=== PATIENT | male | born 1970 | race Caucasian/White ===

== ENCOUNTER 2022-05-12 20:04 | Emergency (ER) | payer OTHER, MEDICAID, SELFPAY ==
[2022-05-12 20:17] VITALS: BP 172/93; PULSE 102; RESP 16; TEMP 36.2; O2SAT 98; BMI 35.4
--- NOTE | 2022-05-12 20:27 | ED.NAVMDI ---
HPI - Nausea/Vomiting/Diarrhea General Chief complaint: Nausea/Vomiting/Diarrhea Stated complaint: Reaction to new insulin medication Time Seen by Provider: 05/12/22 20:26 History of Present Illness HPI Narrative: 51-year-old male smoker with history of diabetes presents with a chief complaint of 24 hours of significant vomiting and now weakness. He was just started a new diabetic medication yesterday and symptoms started soon thereafter. He was sent here by his primary care provider for evaluation. He denies any fever chills nor dietary change. He has no chest pain or shortness of breath and denies abdominal pain. He is otherwise well and free of complaint Related Data Home Medications Medication Instructions Recorded Confirmed glipizide 2.5 mg tablet, extended 2.5 mg PO BIDAC ##0 12/27/16 release 24 hr (Glucotrol XL) Previous Rx's Medication Instructions Recorded azithromycin 250 mg tablet 1 tab PO Q DAY #4 tabs 04/11/16 (Zithromax) metoclopramide HCl 10 mg tablet 10 mg PO TIDP PRN #30 tabs 04/11/16 doxycycline hyclate 100 mg capsule 100 mg PO Q12H #20 caps 12/27/16 oseltamivir 75 mg capsule (Tamiflu) 75 mg PO BID 5 days #0 caps 11/30/17 Allergies Allergy/AdvReac Type Severity Reaction Status Date / Time codeine Allergy Intermediate VOMITING/HI Unverified 12/13/17 11:47 VES Review of Systems Review of Systems Narrative: GENERAL: See HPI HEENT: Denies sinus pain, ear pain, sore throat, difficulty swallowing, dizziness. RESPIRATORY: Denies dyspnea, cough, wheezing, hemoptysis, sputum. CARDIOVASCULAR: Denies chest pain, palpitations, orthopnea, edema, GASTROINTESTINAL: See HPI : Denies dysuria, frequency, incontinence, hematuria, urinary retention. MUSCULOSKELETAL: denies weakness, joint pain, or bony pain SKIN: Denies rash, skin lesions, or other NEUROLOGIC: Denies weakness, headache, numbness, change in speech, confusion, seizures, incoordination. PSYCHIATRIC: No concerning psychosocial issues. 12 point review of systems is negative except for those stated above Exam Narrative Exam Narrative: GENERAL: [51] year old patient appears stated age. Well-developed patient, in mild distress. Holding an emesis bag HEAD: Atraumatic. Normocephalic. EYES: Pupils equal round and reactive. Extraocular motions intact. No scleral icterus. No injection or drainage. ENT: Nose without bleeding, purulent drainage. Throat without erythema, tonsillar hypertrophy or exudate. Airway patent. NECK: Trachea midline. Non tender CARDIOVASCULAR: Regular rate and rhythm without murmurs, gallops, or rubs. RESPIRATORY: Clear to auscultation. Breath sounds equal bilaterally. No wheezes, rales, or rhonchi. GASTROINTESTINAL: Abdomen soft, non-tender, nondistended. EXTREMITIES: No edema or joint tenderness. BACK: Nontender without deformity or crepitance. No flank tenderness. NEURO: AOx3. SKIN: No rash or erythema of visible areas Initial Vital Signs Initial Vital Signs: Vital Signs Temperature 97.1 F L 05/12/22 20:17 Pulse Rate 102 H 05/12/22 20:17 Respiratory Rate 16 05/12/22 20:17 Blood Pressure 172/93 H 05/12/22 20:17 Pulse Oximetry 98 05/12/22 20:17 Oxygen Delivery Method 05/12/22 20:17 Course Course Course Narrative: Patient feels significant improvement after above-stated therapies. He has no pain, labs are reassuring and is tolerating orals. He is given extensive return precautions and plans to touch base with his primary care provider in the morning. Questions answered to his apparent satisfaction Orders Ordered: ED Orders 05/12/22 21:00 Complete Blood Count AUTO DIFF Stat Comprehensive Metabolic Panel Stat Lipase Stat Discontinued Medications Al Hydrox/Mg Hydrox/Simethicone 20 ml/ Lidocaine HCl 15 ml 0 ml PO NOW ONE Stop: 05/12/22 22:45 Last Admin: 05/12/22 22:50 Dose: 15 ml Documented By: MEDARDO Sodium Chloride (Normal Saline 0.9%) 1,000 mls @ 1,000 mls/hr IV BOLUS ONE Stop: 05/12/22 21:27 Last Infusion: 05/12/22 22:25 Dose: 0 mls/hr Documented By: Admin: 05/12/22 20:50 Dose: 1,000 mls/hr Documented By: NR Metoclopramide HCl (Metoclopramide 10 Mg/2 Ml Inj) 10 mg IV NOW ONE Stop: 05/12/22 21:42 Last Admin: 05/12/22 21:47 Dose: 10 mg Documented By: NR Ondansetron HCl (Ondansetron 4 Mg/2 Ml Inj) 4 mg IV NOW ONE Stop: 05/12/22 20:29 Last Admin: 05/12/22 20:50 Dose: 4 mg Documented By: LEONIDAS Ondansetron HCl (Ondansetron 4 Mg Odt Prepack) 1 bottle MISC SEEINSTR ONE Stop: 05/12/22 23:03 Pantoprazole Sodium (Pantoprazole 40 Mg Vial) 40 mg IV NOW ONE Stop: 05/12/22 20:29 Last Admin: 05/12/22 20:50 Dose: 40 mg Documented By: NR Vital Signs Vital signs: Vital Signs - 8 hr 05/12/22 21:46 05/12/22 21:47 05/12/22 21:47 Pulse Rate 87 87 Blood Pressure 161/94 H Pulse Oximetry 94 95 05/12/22 22:00 05/12/22 22:30 Pulse Rate 84 83 Blood Pressure Pulse Oximetry 92 92 MDM - Nausea/Vomiting/Diarrhea Lab Data Result diagrams: 05/12/22 21:00 05/12/22 21:00 Labs: Lab Results 05/12/22 05/12/22 05/12/22 Range/Units 21:00 21:00 21:00 WBC 15.5 H (4.5-11.0) X10^3/uL RBC 6.05 H (4.5-5.9) X10^6/uL Hgb 18.1 H (13.5-17.5) g/dL Hct 53.2 H (41-53) % MCV 87.9 (80-100) fL MCH 29.9 (26-34) PG MCHC 34.0 (30-36) % RDW 13.5 (11.6-14.8) % Plt Count 212 (150-400) X10^3/uL Neut % (Auto) 65.9 (50-75) % Lymph % (Auto) 25.3 (25-40) % [place] % (Auto) 6.8 (3-14) % Eos % (Auto) 1.3 L (2-4) % Baso % (Auto) 0.7 (0-2) % Neut # (Auto) 64957 H (4372-6717) /uL Lymph # (Auto) 3900 (3918-9889) /uL [place] # (Auto) 1100 H (0-900) /uL Eos # (Auto) 200 (0-450) /uL Baso # (Auto) 100 (0-100) /uL Sodium 140 (137-145) mmol/L Potassium 3.6 (3.4-5.1) mmol/L Chloride 103 (98-107) mmol/L Carbon Dioxide 24 (22-32) mmol/L BUN 13 (9-20) mg/dL Creatinine 0.67 (0.66-1.25) mg/dL Estimated GFR > 60 (>60) mL/min BUN/Creatinine Ratio 19.4 (6-22) Glucose 225 H (70-100) mg/dL Calcium 9.7 (8.4-10.2) mg/dL Total Bilirubin 1.1 (0.2-1.3) mg/dL AST 28 (17-59) IU/L ALT 66 H (<50) IU/L Alkaline Phosphatase 209 H (38-126) U/L Total Protein 8.6 H (6.3-8.2) g/dL Albumin 4.2 (3.5-5.0) g/dL Globulin 4.4 H (1.7-4.1) g/dL Albumin/Globulin Ratio 1.0 (1.0-2.8) Lipase 81 (23-300) U/L Discharge Plan Departure Patient Disposition: Home Clinical Impression: Vomiting Instructions: DI for Vomiting -- Adult Activity Restrictions/Additional Instructions: *You have been diagnosed with [vomiting, likely secondary to medication reaction] *What to do: *Please take no more doses of your new diabetic medication *Please follow up with your primary care provider in 2-3 days, call for an appointment. Let them know you were seen in the Emergency Department and that we ask that you be seen in follow up. *Return to Emergency Department if you should have any new, worsening or concerning symptoms, such as [fever greater than 101 F, shaking chills, worsening pain, persistent vomiting or other bothersome symptoms] Prescriptions: No Action azithromycin [Zithromax] 250 MG tablet 1 tab PO Q DAY Qty: 4 0RF metoclopramide HCl 10 MG tablet 10 mg PO TIDP PRNQty: 30 0RF glipizide [Glucotrol XL] 2.5 MG tablet extended release 24hr 2.5 mg PO BIDAC Qty: 0 doxycycline hyclate 100 MG capsule 100 mg PO Q12H Qty: 20 0RF oseltamivir [Tamiflu] 75 MG capsule 75 mg PO BID 5 Days Qty: 0 0RF Referrals: Bebo España MD [Primary Care Provider] - Visit Report Forms: Patient Portal/API
[2022-05-12] MEDS: SODIUM CHLORIDE 0.9% 1,000 ML 1000 ML IV (20:50)
[2022-05-12] MEDS: ONDANSETRON 4 MG/2 ML INJ IV (20:50)
[2022-05-12] MEDS: PANTOPRAZOLE 40 MG VIAL IV (20:50)
[2022-05-12 21:18] LABS: Alanine Aminotransferase 66 IU/L (<50); Albumin 4.2 g/dL (3.5-5.0); Alkaline Phosphatase 209 U/L (38-126); Aspartate Aminotransferase 28 IU/L (17-59); BUN Creatinine Ratio 19.4 (6-22); Bilirubin Total 1.1 mg/dL (0.2-1.3); Blood Urea Nitrogen 13 mg/dL (9-20); Calcium 9.7 mg/dL (8.4-10.2); Carbon Dioxide 24 mmol/L (22-32); Chloride 103 mmol/L (98-107); Estimated Glomerular Filt Rate > 60 mL/min (>60); Globulin 4.4 g/dL (1.7-4.1); Glucose 225 mg/dL (70-100); HEMOLYSIS 19 (0-50); Potassium 3.6 mmol/L (3.4-5.1); Sodium 140 mmol/L (137-145); Total Protein 8.6 g/dL (6.3-8.2)
[2022-05-12 21:21] LABS: Add Manual Diff / Slide Review NO; Basophils Absolute Auto 100 /uL (0-100); Basophils Percent Auto 0.7 % (0-2); Eosinophils Absolute Auto 200 /uL (0-450); Eosinophils Percent Auto 1.3 % (2-4); Hematocrit 53.2 % (41-53); Hemoglobin 18.1 g/dL (13.5-17.5); Lymphocytes Absolute Auto 3900 /uL (1100-4500); Lymphocytes Percent Auto 25.3 % (25-40); Mean Corpuscular Hemoglobin 29.9 PG (26-34); Mean Corpuscular Volume 87.9 fL (80-100); Monocytes Absolute Auto 1100 /uL (0-900); Monocytes Percent Auto 6.8 % (3-14); Neutrophils Absolute Auto 10200 /uL (1500-7000); Neutrophils Percent Auto 65.9 % (50-75); Platelet Count 212 X10^3/uL (150-400); Red Blood Cell Count 6.05 X10^6/uL (4.5-5.9); Red Cell Distribution Width 13.5 % (11.6-14.8); White Blood Cell Count 15.5 X10^3/uL (4.5-11.0)
[2022-05-12 21:46] VITALS: PULSE 87; O2SAT 94
[2022-05-12 21:47] VITALS: BP 161/94; PULSE 87; O2SAT 95
[2022-05-12] MEDS: METOCLOPRAMIDE 10 MG/2 ML INJ IV (21:47)
[2022-05-12 22:00] VITALS: PULSE 84; O2SAT 92
[2022-05-12 22:30] VITALS: PULSE 83; O2SAT 92
[2022-05-12] MEDS: MAG HYDROX/ALUMINUM/SIMETH SUS 20 ML, LIDOCAINE VISCOUS 2% 15 ML PO (22:50)
[2022-05-12 22:57] LABS: Lipase 81 U/L (23-300)
== END 2022-05-12 23:17 | disposition home or self-care (01) ==
PROVIDERS: Emergency Provider Emergency Medicine; Family Provider Family Medicine; PCP Family Medicine
DX: R11.10 Vomiting, unspecified (principal); R53.1 Weakness
CPT/HCPCS: 36415; 80053; 83690; 85025; 96361; 96374; 96375; 99284; C9113; J2405; J2765